=== PATIENT | female | born 1950 | race Caucasian/White ===

== ENCOUNTER 2016-04-26 08:29 | Emergency (ER) | payer OTHER ==
[~2016-04-26] VITALS: Ht 162.6 cm; Wt 54.4 kg
[2016-04-26] MEDS ORDERED: NKM (08:36)
[2016-04-26 08:50] VITALS: BP 112/90
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
[2016-04-26] MEDS ORDERED: IBUPROFEN600 MG ORAL (09:55)
--- NOTE | 2016-04-26 10:10 | Diagnostic Imaging Report ---
Indications: Right ankle pain Technique: 3 views right ankle. Findings: Comparison: None No fracture, dislocation, joint space widening or lytic destruction, periosteal reaction , surrounding soft tissue swelling/foreign body/other abnormality, or other acute changes are identified. No degenerative or other chronic changes demonstrated. IMPRESSION: Negative right ankle series
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
[2016-04-26 10:54] VITALS: BP 120/76
[2016-04-26 10:56] VITALS: BP 120/76
--- NOTE | 2016-05-03 14:57 | Diagnostic Imaging Report ---
Indication: Chest pain Technique: Single portable AP view of the chest. Findings: Comparison: None. Small circumscribed sclerotic focus in each humeral head. Subcentimeter circumscribed nodular opacity overlies left midlung. The bones and extra pulmonary soft tissues, cardiomediastinal silhouette, pulmonary vasculature and parenchyma, and pleural surfaces are otherwise unremarkable. IMPRESSION: Humeral head sclerotic foci most likely bone islands Left midlung region nodular density may represent summation artifact. Lung nodule, whether inflammatory or neoplastic, not excludable. If no prior outside chest radiographs available for comparison, recommend contrast enhanced CT scan of thorax if persists on short interval followup.
--- NOTE | 2016-06-03 14:02 | Diagnostic Imaging Report ---
Indications: Left leg pain Technique: 2 views left leg. Findings: Comparison: None No fracture, dislocation, joint space widening , lytic destruction, periosteal reaction , surrounding soft tissue swelling/foreign body/other abnormality, or other acute changes are identified. A cluster of small calcific densities is present in the deep soft tissues posterior medial to the mid tibial diaphysis. No other chronic changes are demonstrated. IMPRESSION: No evidence of acute abnormalities. Mid calf soft tissue calcification, nonspecific
== END 2016-04-26 11:08 | disposition home or self-care (01) ==
LOC: EDBD 08:29 → EMR 10:08
DX: S20.219A Contusion of unspecified front wall of thorax, initial encounter (principal); S80.10XA Contusion of unspecified lower leg, initial encounter; V43.52XA Car driver injured in collision with other type car in traffic accident, initial encounter; Y92.410 Unspecified street and highway as the place of occurrence of the external cause; Y99.8 Other external cause status
CPT/HCPCS: 71010; 99284